=== PATIENT | male | born 1985 | race Two or more races ===

== ENCOUNTER → 2019-07-29 | Outpatient (CLI) | payer OTHER | END | disposition home or self-care (01) | LOC: LAB 12:15 | PROVIDERS: ATTEND Urology | DX: N39.0 Urinary tract infection, site not specified (principal) | CPT/HCPCS: 87086 ==

== ENCOUNTER → 2019-08-24 | Outpatient (CLI) | payer OTHER | END | disposition home or self-care (01) | LOC: LAB 11:31 | PROVIDERS: ATTEND Urology | DX: N50.811 Right testicular pain (principal); N50.812 Left testicular pain; N34.2 Other urethritis | CPT/HCPCS: 87086 ==